=== PATIENT | female | born 1970 | race Caucasian/White ===

== ENCOUNTER 2017-05-09 15:13 | Outpatient (CLI) | payer BC ==
--- NOTE | 2017-05-09 17:39 | XRAY Report ---
THREE-VIEW RIGHT ELBOW: 05/09/2017 CLINICAL INDICATION: Pain, numbness. FINDINGS: AP, lateral, oblique views of the right elbow demonstrate no evidence of fracture or dislo cation. The joint spaces are preserved. No effusion is present. No foreign body is seen. IMPRESSION: NORMAL RIGHT ELBOW. JOB #: [id number] EXT JOB #:[id number]
== END 2017-05-09 15:14 | disposition home or self-care (01) ==
LOC: DI 15:13
PROVIDERS: ATTEND Family Medicine
DX: M25.521 Pain in right elbow (principal)

== ENCOUNTER 2017-06-27 08:55 | Emergency (ER) | payer BC ==
[2017-06-27] MEDS ORDERED: IBUPROFEN 800 MG TABLET PO STA (09:18)
--- NOTE | 2017-06-27 09:23 | ED Physician Documentation ---
PD HPI Fall - Stated complaint Stated Complaint: GLF - Chief complaint Chief Complaint: Ext Problem - History obtained from History obtained from: Patient, Family (Spouse) - History of Present Illness Mechanism of injury: Slipped Fall distance: Sitting position Where injury occurred: Home Timing - onset: How many hours ago (<1) Injury(ies) location: Right Upper Extremity Associated symptoms: No: LOC, Weakness, Paresthesias, Nausea / vomiting Worsens with: Palpation Similar symptoms before: Has not had sx before - Treatment prior to arrival Treatment prior to arrival: The patient is a 46-year-old female who slipped on her stairs this morning, sliding down about 6 steps, and catching herself with her right arm on the railing. She presents now with pain and ecchymosis in her right upper extremity. She is right-hand dominant. She denies any other injuries.She does not take anticoagulant medication. Review of Systems Constitutional: denies: Fever Ears: denies: Tinnitus/ringing Nose: denies: Congestion Cardiac: denies: Chest pain / pressure Respiratory: denies: Dyspnea GI: denies: Abdominal Pain, Nausea, Vomiting Skin: denies: Laceration (s) Musculoskeletal: reports: Extremity pain (Right upper extremity.). denies: Neck pain, Back pain Neurologic: denies: Focal weakness, Numbness, Head injury, LOC PD PAST MEDICAL HISTORY - Past Medical History Past Medical History: No - Past Surgical History Past Surgical History: Yes - Present Medications Home Medications: Ambulatory Orders Medication Instructions Recorded Confirmed Naproxen [Naprosyn] 500 mg PO BID PRN #20 tablet 06/27/17 - Allergies Allergies/Adverse Reactions: Allergies Allergy/AdvReac Type Severity Reaction Status Date / Time Sulfa (Sulfonamide Allergy Emesis Verified 06/27/17 09:07 Antibiotics) - Living Situation Living Situation: reports: With spouse/s.o. - Social History Does the pt smoke?: No Smoking Status: Never smoker Does the pt drink ETOH?: No Does the pt have substance abuse?: No - Immunizations Immunizations are current?: Yes - POLST Patient has POLST: No PD ED PE NORMAL - Vitals Vital signs reviewed: Yes (Borderline hypertension initially.) - General General: Alert and oriented X 3, Well developed/nourished - HEENT HEENT: Atraumatic, EOMI - Neck Neck: No bony TTP, No adenopathy, Other (Full cervical range of motion.) - Cardiac Cardiac: RRR, No murmur - Respiratory Respiratory: No respiratory distress, Clear bilaterally, Other (No chest wall tenderness.) - Abdomen Abdomen: Soft, Non tender - Back Back: No CVA TTP, No spinal TTP - Derm Derm: No rash - Extremities Extremities: No deformity, Other (There is ecchymosis at the posterior aspect of the right upper arm, the posterior medial aspect of the right proximal forearm, as well as the right distal forearm. She has full range of motion of the shoulder, elbow, and wrist, including supination and pronation of the forearm. There is tenderness to palpation of the forearm. Distal neurovascular is intact.) - Neuro Neuro: Alert and oriented X 3, No motor deficit, No sensory deficit, Normal speech Results - Vitals Vitals: Oxygen O2 Source Room air PD MEDICAL DECISION MAKING - ED course Complexity details: reviewed results, re-evaluated patient, considered differential, d/w patient, d/w family ED course: The patient's presentation is significant for contusions to the right arm and forearm caused by falling down stairs. X-ray of the forearm reveals no bony abnormality. Treatment in the emergency department included administration of ibuprofen 800 mg orally. I discussed with her and her the expected course of injury, symptomatic treatment and outpatient follow-up, as well as potentially worrisome signs or symptoms that should prompt reevaluation in the emergency department. Departure - Departure Disposition: 01 Home, Self Care Clinical Impression: Fall (on) (from) other stairs and steps, initial encounter Contusion of right forearm, initial encounter Qualifiers: Encounter type: initial encounter Qualified Code(s): S50.11XA - Contusion of right forearm, initial encounter Condition: Stable Instructions: ED Contusion Upper Ext Follow-Up: Sukhi Spangler DO [Provider Admit Priv/Credential] - Prescriptions: Naproxen [Naprosyn] 500 mg PO BID PRN #20 tablet PRN Reason: Pain Comments: Apply ice pack to the sore areas intermittently for the next 3 days. You can use Naprosyn as prescribed if needed for pain. Alternatively you could use ibuprofen, up to 800 mg 3 times daily. Let your pain be your guide to activity level. Follow-up with your primary physician, or return to the emergency department, if you develop markedly increasing pain, or otherwise worsening symptoms. Discharge Date/Time: 06/27/17 10:27
[2017-06-27] MEDS ORDERED: IBUPROFEN 800 MG TABLET PO ONE (09:29)
[2017-06-27 10:26] VITALS: BP 116/73
--- NOTE | 2017-06-27 10:34 | XRAY Preliminary Report ---
Exam: XR Forearm RT IMPRESSION: No fracture. [facility] SITE ID: [id number]
--- NOTE | 2017-06-27 10:37 | XRAY Report ---
EXAM: RIGHT FOREARM RADIOGRAPHY EXAM DATE: 06/27/2017 10:01 AM. CLINICAL HISTORY: Fall with injury right forearm. Forearm pain. COMPARISON: None. TECHNIQUE: 2 views. FINDINGS: Bones: Normal. No fractures or bone lesions. Joints: Normal. No effusions or subluxations in the visualized wrist or elbow joints. Soft Tissues: Normal. No soft tissue swelling. IMPRESSION: No fracture. [facility] Referring Provider Line: [phone] SITE ID: [id number]
== END 2017-06-27 10:27 | disposition home or self-care (01) ==
LOC: ED 08:55
DX: S50.11XA Contusion of right forearm, initial encounter (principal); W10.8XXA Fall (on) (from) other stairs and steps, initial encounter; Y92.018 Other place in single-family (private) house as the place of occurrence of the external cause
CPT/HCPCS: 73090; 99283; A9270

== ENCOUNTER 2018-08-03 10:07 | Outpatient (CLI) | payer BC ==
[2018-08-03 11:16] LABS: CHOL/HDL RATIO 3.7 (<4.4); CHOLESTEROL 209 mg/dL; GLUCOSE,FASTING 91 mg/dL (70-100); HDL CHOLESTEROL 56 mg/dL; LDL CHOLESTEROL,CALCULATED 140 mg/dL; LDL/HDL RATIO 2.5 (<4.4); VLDL CHOLESTEROL 13 mg/dL
[2018-08-03 11:40] LABS: HB2 TOTAL 15.2 g/dL; HEMOGLOBIN A1C 0.45 g/dL; HEMOGLOBIN A1C % 4.9 % (4.6-6.2)
[2018-08-03 11:54] LABS: THYROID STIMULATING HORMONE 1.09 uIU/mL (0.34-5.60)
[2018-08-03 12:22] LABS: FOLLICLE STIMULATING HORMONE 113.94 mIU/mL
[2018-08-03 12:23] LABS: LUTEINIZING HORMONE 60.02 mIU/mL
== END 2018-08-03 10:08 | disposition home or self-care (01) ==
LOC: LAB 10:07
PROVIDERS: ATTEND Registered Nurse
DX: Z01.419 Encounter for gynecological examination (general) (routine) without abnormal findings (principal)
CPT/HCPCS: 36415; 80061; 82670; 82947; 83001; 83002; 83036; 83721; 84443